=== PATIENT | female | born 1990 | race Two or more races ===

== ENCOUNTER 2020-01-26 11:12 | Emergency (ER) | payer MEDICAID ==
[~2020-01-26] VITALS: Ht 162.6 cm; Wt 64.0 kg
[2020-01-26 11:22] VITALS: BP 106/50
[2020-01-26] MEDS ORDERED: BACITRACIN ZINC OINT UDPKT TOP ONE (11:45)
[2020-01-26] MEDS ORDERED: LIDOCAINE HCL/PF 1% 10 MG/ML 5ML VIAL IJ ONE (11:45)
[2020-01-26] MEDS ORDERED: IBUPROFEN 600MG TABLET PO ONE (11:45)
== END 2020-01-26 14:15 | disposition home or self-care (01) ==
LOC: ER 11:12
DX: S71.111A Laceration without foreign body, right thigh, initial encounter (principal); W01.110A Fall on same level from slipping, tripping and stumbling with subsequent striking against sharp glass, initial encounter; Y93.89 Activity, other specified; Y92.9 Unspecified place or not applicable
CPT/HCPCS: 12002; 99283; J3490

== ENCOUNTER 2020-01-29 17:05 | Emergency (ER) | payer MEDICAID ==
[~2020-01-29] VITALS: Ht 162.6 cm; Wt 64.0 kg
[2020-01-29 17:08] VITALS: BP 108/60
== END 2020-01-29 18:16 | disposition home or self-care (01) ==
LOC: ER 17:05
DX: S81.011D Laceration without foreign body, right knee, subsequent encounter (principal); Z48.00 Encounter for change or removal of nonsurgical wound dressing; X58.XXXD Exposure to other specified factors, subsequent encounter
CPT/HCPCS: 99281

== ENCOUNTER 2020-02-07 00:21 | Emergency (ER) | payer MEDICAID ==
[~2020-02-07] VITALS: Ht 162.6 cm; Wt 56.0 kg
[2020-02-07 00:36] VITALS: BP 99/47
== END 2020-02-07 01:19 | disposition left against medical advice (07) ==
LOC: ER 00:21
DX: Z53.21 Procedure and treatment not carried out due to patient leaving prior to being seen by health care provider (principal)

== ENCOUNTER 2020-02-10 19:13 | Emergency (ER) | payer MEDICAID ==
[~2020-02-10] VITALS: Ht 172.7 cm; Wt 54.0 kg
[2020-02-10 19:14] VITALS: BP 125/70
== END 2020-02-10 21:30 | disposition home or self-care (01) ==
LOC: ER 19:13
DX: S71.111D Laceration without foreign body, right thigh, subsequent encounter (principal); Z48.02 Encounter for removal of sutures; X58.XXXD Exposure to other specified factors, subsequent encounter
CPT/HCPCS: 99281